=== PATIENT | male | born 1960 | race Caucasian/White ===

== ENCOUNTER 2024-08-07 11:26 | Outpatient (REF) | payer OTHER, SELFPAY ==
--- NOTE | ~2024-08-07 | MR_ITS ---
EXAMINATION: MR BRAIN WITHOUT IV CONTRAST HISTORY: TREMOR, DIZZINESS TECHNIQUE: Sagittal T1, and axial T1, FLAIR, T2, gradient echo, and diffusion weighted MR images of the brain were obtained. COMPARISON: None FINDINGS: There is mild prominence of the ventricular system and cortical sulci, consistent with atrophy. Scattered periventricular and subcortical white matter hyperintensities are noted on the FLAIR and T2-weighted images which are nonspecific, but often seen in the setting of small vessel ischemic disease. This is most prominent in the right barrera radiata. There is no mass effect or midline shift. No intra or extra-axial fluid collections are identified. There are no foci of restricted diffusion. Normal vascular flow voids are noted in the basilar and carotid arteries. There is mild mucosal thickening in the bilateral maxillary and frontal sinuses. There is trace fluid signal intensity in the right mastoid air cells. MR/MR head/brain wo con IMPRESSION: Mild cerebral atrophy and findings suggestive of small vessel ischemic disease of the white matter. No evidence of an acute infarct. Electronically signed by: Leno Aldrich MD 08/08/2024 07:39 AM EDT
--- OUTSIDE RECORDS SUMMARY | 2024-08-07 13:56 | XMS_ITS | Continuity of Care Document ---
Author Organization [facility] Address [address] [place] [address]- Care Team Providers Care Agriculture Instructor Name Role Phone Sally SPEEDER HAND, Mark Minor Primary Care Physician Encounter [facility] Date(s): 07/03/24 - 08/02/24 [facility] [address] [place] [address]- Encounter Type: Triage Allergies, Adverse Reactions, Alerts No Known Allergies Immunizations Given and Recorded Vaccine Date Status Refusal Reason influenza virus vaccine, inactivated 02/11/24 Joel rded influenza virus vaccine, inactivated 03/23/23 Joel rded influenza virus vaccine, inactivated 01/30/22 Joel rded influenza virus vaccine, inactivated 1 02/17/21 Gi ang influenza virus vaccine, inactivated 04/03/20 Joel rded influenza virus vaccine, inactivated 2 04/01/18 Gi ang influenza virus vaccine, inactivated 3 05/02/17 Gi ang influenza virus vaccine, inactivated 03/30/16 Give n influenza virus vaccine, inactivated 05/04/15 Give n influenza virus vaccine, inactivated 02/26/13 Give n influenza virus vaccine, inactivated 4 04/18/12 Gi ang influenza virus vaccine, inactivated 02/17/11 Give n influenza virus vaccine, inactivated 5 03/13/07 Gi ang SARS-CoV-2(COVID-19)mRNA-LNP vac([id number]) 02/11/24 Recorded SARS-CoV-2(COVID-19)mRNA-LNP vac([id number]) 03/23/23 Recorded [id number] 12y+ bivalent booster vax 01/30/22 Recorded SARS-CoV-2 mRNA ([id number]) vax 09/01/21 Recorded zoster vaccine, inactivated 05/07/21 Recorded zoster vaccine, inactivated 02/28/21 Recorded SARS-CoV-2 (COVID-19) mRNA BNT-162b2 vac 02/28/21 Recorded SARS-CoV-2 (COVID-19) mRNA BNT-162b2 vac 08/11/20 Recorded SARS-CoV-2 (COVID-19) mRNA BNT-162b2 vac 07/20/20 Recorded Influenza Inactive (IM) (oldterm) 02/28/09 Given Influenza Inactive (IM) (oldterm) 03/29/05 Given Influenza Virus Vaccine (oldterm) 6 02/24/08 Given Tet/Diphth/Acel, Pertussis (oldterm) 7 12/23/07 Gi ang Pneumococcal Poly (PPV23) (oldterm) 03/02/06 Given 1Result Comment: FLU [facility] 89526-382-89 2Result Comment: [04/01/2018] [facility] [address]-86 Syringe [address]-11 box 3Result Comment: [facility] [id number] 4Admin Note: VIS GIVEN 5Admin Note: given by dr melendez 6Admin Note: VIM 10/27/05 MANUFACTURED SANOFI PASTEUR administered by DR Melendez 7Admin Note: manufactured sanofi pasteur Medications amlodipine-benazepril 10 mg-40 mg oral capsule 1 capsule, By Mouth, Daily, # 90 capsule, 3 Refills, Maintenance, 04/15/24 9:01:00 AM EST, [facility], 90, TAKE 1 CAPSULE DAILY, 185, cm, 02/20/24 14:53:00 EDT, Height Start Date: 04/15/24 Status: Ordered Quantity: 90.0 Unit: capsule Repeat number: 1 atorvastatin 80 mg oral tablet 1 tablet, By Mouth, Daily at bedtime, # 90 tablet, 3 Refills, Maintenance, 04/15/24 9:01:00 AM EST,[facility], 185, cm, 02/20/24 14:53:00 EDT, Height Start Date: 04/15/24 Status: Ordered Quantity: 90.0 Unit: tablet Repeat number: 1 hydrochlorothiazide 50 mg oral tablet 50 mg, 1, tablet, By Mouth, Daily, # 90 tablet, Refills 3, Tot. Refills 3, Maintenance, 06/16/24 9:26:00 AM EST, Route to Pharmacy Electronically, [facility]/pharmacy #[id number], Partial fill upon patient requestif the prescription is for a schedule II opioid drug., 185, cm, 06/16/24 8:58:00 EST, Height Start Date: 06/16/24 Status: Ordered Quantity: 90.0 Unit: tablet Repeat number: 4 Lantus Solostar Pen 100 units/mL subcutaneous solution = 40 units, Subcutaneous Injection, Daily at bedtime, for 90 days, rotate injection sites with evening meal, # 15 mL, 3 Refills, Physician Stop 05/07/25 9:12:00 AM EST, 05/12/24 9:12:00 AM EST, Patient needs an appointment Start Date: 05/12/24 Stop Date: 05/07/25 Status: Ordered Quantity: 15.0 Unit: mL Repeat number: 4 MetFORMIN (Eqv-Glucophage XR) 500 mg oral tablet, extended release 2 tablet, By Mouth, 2 times a day with meals, /WITH FOOD TO PREVENT GASTROINTESTINAL UPSET., # 360 tablet, 1 Refills, Maintenance, 04/15/24 9:00:00 AM EST, [facility] [id number], 185, cm, 02/20/24 14:53:00EDT, Height Start Date: 04/15/24 Status: Ordered Quantity: 360.0 Unit: tablet Repeat number: 1 OneTouch Verio Lancets See Instructions, # 200 each, Refills 3, Tot. Refills 3, Maintenance, Use to check blood glucose levels 2x per day. E11.9. 90 day supply., 04/26/23 10:51:00 AM EST, Supply, 185, cm, 07/19/22 9:48:00 EDT, Height, 88.9, kg, 08/15/21 6:49:00 EDT, Dry Weight Start Date: 04/26/23 Status: Ordered Quantity: 200.0 Unit: each Repeat number: 4 OneTouch Verio Test Strips See Instructions, # 200 each, Refills 3, Tot. Refills 3, Maintenance, Use to check blood glucose levels 2x per day. E11.9 90 day supply., 04/26/23 10:51:00 AM EST, Supply, 185, cm, 07/19/22 9:48:00 EDT, Height, 88.9, kg, 08/15/21 6:49:00 EDT, Dry Weight Start Date: 04/26/23 Status: Ordered Quantity: 200.0 Unit: each Repeat number: 4 Pen [place], 31 G x 5 mm BD Ultra Fine III See Instructions, # 100 each, Refills 3, Tot. Refills 3, Maintenance, use 1x a day with insulin. E 11.9, 90 day, 04/26/23 10:50:00 AM EST, Compound, 185, cm, 07/19/22 9:48:00 EDT, Height, 88.9, kg, 08/15/21 6:49:00 EDT, Dry Weight Start Date: 04/26/23 Status: Ordered Quantity: 100.0 Unit: each Repeat number: 4 sAXagliptin 5 mg oral tablet 1 tablet = 5 mg, By Mouth, Daily, # 90 tablet, 2 Refills, Maintenance, 06/16/24 9:20:00 AM EST, Tablet, [facility]/pharmacy #[id number], Partial fill upon patient request if the prescription is for a schedule II opioid drug., 185, cm, 06/16/24 8:58:00 EST, Height Start Date: 06/16/24 Status: Ordered Quantity: 90.0 Unit: tablet Repeat number: 3 Problem List Condition Confirmation Course Effective Dates Status H ealth Status Informant Tremor of both hands Confirmed Active HTN (hypertension) Confirmed Active Type 2 diabetes mellitus with hyperglycemia Confirmed Active Hyperlipidemia NOS Confirmed 1998 Active Overweight Confirmed Active Tinnitus Confirmed Active DM (diabetes mellitus), type 2 Confirmed 02/2005 Active Social History Social History Type Response Smoking Status Current every day sm oker; Other: 1+ ppd since mid teens, currently 1.5 ppd.; entered on: 08/26/15 Sex Sex Representation Male (finding) Patient Care team information Care Team Personnel Name: Mark Zavala NP Position: [facility] PCO Associate Professional Member Role: PCP Address: [address] [place] [address]- Telecom: Care Team Related Persons Name: BUTCHANJU Insurance Providers Guarantor name: ANGELICA RAE Health Plan Information #: 1 Payer: [employer] OPEN ACCESS Member Number: NA Policy Number: NA Group Number: NA
== END 2024-08-07 11:27 | disposition home or self-care (01) ==
LOC: HO.MRI 11:26
PROVIDERS: PCP Internal Medicine; Visit Provider Psychiatry & Neurology Neurology
DX: R25.1 Tremor, unspecified (principal); R42 Dizziness and giddiness
CPT/HCPCS: 70551

== ENCOUNTER → 2024-08-07 11:50 | Outpatient (BNV) | payer OTHER, SELFPAY | PROVIDERS: PCP Internal Medicine; Visit Provider Radiology Diagnostic Radiology | DX: R25.1 Tremor, unspecified (principal); R42 Dizziness and giddiness | CPT/HCPCS: 70551 ==